=== PATIENT | female | born 1985 | race Caucasian/White ===

== ENCOUNTER → 2017-11-16 14:00 | Outpatient (CLI) | payer OTHER, SELFPAY ==
--- NOTE | 2017-11-16 14:05 | US_ITS ---
US transvaginal Ordering Physician: Ayah Page Patient Age: 32 years: Female HISTORY: ITS.REASON: PELVIC PAIN, SUPRAPUBIC ABD PAIN Pelvic and coronal pelvic pain TECHNIQUE: Transvaginal pelvic ultrasound. COMPARISON :None FINDINGS uterus normal size. 7.2 cm length as 4 cm x 5 cm Uterus appears within normal limits. Endometrial stripe measures 6.7 mm AP endometrium appears smooth and regular. No fibroids identified. Right ovary 2.5 x 2.3 x 2.4 cm Several cystic areas. The largest cyst measuring 1 cm. The others are notably smaller. Left ovary 2.0 x1.8 x 2.3 cm. Small cystic area. Less than 1 cm No fluid in cul-de-sac IMPRESSION: . Uterus appears normal size. & Appearance . Ovaries normal in size.With Follicles cyst bilaterally Largest cyst at left ovary measuring 1 cm
== END ==
PROVIDERS: Family Provider Internal Medicine Adolescent Medicine; PCP Nurse Practitioner Family; Visit Provider Nurse Practitioner Family
DX: R10.2 Pelvic and perineal pain (principal)
CPT/HCPCS: 76830

== ENCOUNTER 2019-11-06 11:59 | Day surgery (SDC) | payer MEDICAID, SELFPAY ==
[2019-11-06] VITALS (16 sets, daily range): BP systolic 117–148; BP diastolic 61–94; PULSE 68–111; RESP 12–20; TEMP 36.4–43; O2SAT 89–99; BMI 25.7
--- NOTE | 2019-11-06 12:18 | CT_ITS ---
PROCEDURE: CT ABDOMEN PELVIS W CON CLINICAL INDICATION: right aide abd pain COMPARISON: No exams were available for comparison TECHNIQUE: IV Contrast: 75ML OPTIRAY 350 Oral Contrast None Axial images obtained with sagittal and coronal reformats. All CT scans at the facility use one or more dose reduction, viz: automated exposure control, ma/kV adjustment per patient size (including targeted exams where dose is matched to indication, i.e. head), or iterative reconstruction technique. FINDINGS: LOWER THORAX: No acute finding ABDOMEN & PELVIS: The liver, spleen, adrenal glands, pancreas, and kidneys have an unremarkable appearance. No intestinal obstruction or free air. The appendix is slightly plump at 7 mm. There is a small amount of fluid within the appendiceal lumen distally there is no significant stranding of the periappendiceal fat however the margin of the appendix is somewhat ill-defined. Early/mild appendicitis is a consideration. No evidence of abscess or perforation. Only minimal amount of fluid is noted in the pelvis. No acute bony findings. IMPRESSION: There is mild prominence of the appendix with a small amount fluid in the distal aspect of the appendiceal lumen. Mild/early appendicitis is a consideration. Please correlate with clinical parameters. If clinical findings are indeterminate then, would recommend a follow-up exam with IV and oral contrast within 12 hours. Dictated by: Myles Ramos MD 11/06/2019 13:47 Electronically signed by Myles Ramos MD in [place] 11/06/2019 13:47
--- NOTE | 2019-11-06 12:23 | PC.NURSE ---
notified rad of CT
[2019-11-06 12:25] LABS: Microscopic, Urine URINE MICROSCOPIC (MICROSCOPIC)
[2019-11-06 12:26] LABS: Appearance,Urine SL CLOUDY (Clear); Bilirubin,Urine Negative (Negative); Blood, Urine Negative (Negative); Color,Urine YELLOW (Yellow); Glucose,Urine (UA) Negative (Negative); Ketones,Urine Negative (Negative); Leukocyte Esterase,Urine Negative (Negative); Nitrate,Urine Negative (Negative); PH,Urine 6.5 (5.0-8.5); Protein,Urine Negative (Negative); Specific Gravity, Urine 1.015 (1.005-1.030); Urobilinogen,Urine 0.2 EU/dl (0.2)
[2019-11-06 12:29] LABS: Urine Pregnancy, HCG Qual. Negative (Negative)
[2019-11-06 12:40] LABS: Basophils % 0.3 % (0.1-2.0); Eosinophils # 0.2 K/mm3 (0.0-0.4); Eosinophils % 1.9 % (0.1-12.0); Hematocrit 44.7 % (37.0-47.0); Hemoglobin 15.5 g/dL (12.2-16.2); Lymphocytes # 1.8 K/mm3 (0.7-4.5); Mean Corpuscular HGB Conc 34.6 g/dL (31.8-35.4); Mean Corpuscular Hemoglobin 32.4 pg (27.0-31.2); Mean Corpuscular Volume 93.6 fl (81-99); Mean Platelet Volume 7.4 fl (7.4-10.4); Monocytes # 0.5 K/mm3 (0.1-1.0); Monocytes % 3.7 % (1.7-9.3); Neutrophils # 9.5 K/mm3 (1.8-7.8); Platelet Count 365 K/mm3 (142-424); Red Blood Count 4.77 M/mm3 (4.20-5.40); Red Cell Distribution Width 12.8 % (11.5-17.5)
--- NOTE | 2019-11-06 12:52 | PC.NURSE ---
Pt left for rad
[2019-11-06 12:59] LABS: Chloride 100 mmol/L (98-107); Sodium 137 mmol/L (136-145)
[2019-11-06 13:00] LABS: Potassium 4.2 mmoL/L (3.5-5.1)
[2019-11-06 13:02] LABS: Alanine Aminotransferase 14 U/L (12-78); Albumin Level 4.7 g/dl (3.5-5.0); Albumin/Globulin Ratio 1.3 (1.1-1.8); Alkaline Phosphatase 70 U/L (38-126); Amylase 67 U/L (30-110); Anion Gap 13.2 mEq/L (5-15); Aspartate Amino Transferase 29 U/L (14-36); Bilirubin,Total 0.7 mg/dl (0.2-1.3); Blood Urea Nitrogen 8 mg/dl (7-17); Calcium 9.5 mg/dl (8.4-10.2); Carbon Dioxide 28 mmol/L (22.0-30.0); Creatinine Clearance Estimated 108 mL/min (50-200); Estimated Glomerular Filt Rate 83 ml/min (>60); GFR (African American) 101 ML/MIN (>60); Globulin 3.5 g/dL (1.3-3.2); Glucose 108 mg/dl (74-100); Lipase 35 U/L (23-300); Total Protein,Serum 8.2 g/dl (6.3-8.2)
--- NOTE | 2019-11-06 13:25 | PC.NURSE ---
pt returned from ct
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
--- NOTE | 2019-11-06 14:18 | PC.NURSE ---
Dr Jiménez returned call
--- NOTE | 2019-11-06 14:29 | PC.NURSE ---
pre-op just called said Dr Jiménez was gonna do surgery on her. they are coming down to get her
--- NOTE | 2019-11-06 14:34 | HMH.EDABDPAI ---
ED Disposition Clinical Impression: Acute appendicitis Disposition: Admitted as Observation Condition on Discharge: Good Instructions: DI for Acute Abdomen Referrals: Terri Peñaloza [Primary Care Provider] - - Critical Care Critical Care Time: No Attestation: On 11/06/19, the high probability of a clinically significant, sudden or life threatening deterioration of the following system(s) required my full and direct attention, intervention and personal management. The time I documented below is in addition to time spent performing reported procedures but includes the following listed in this critical care notation. Medical Decision Making - Medical Records Medical records reviewed: Yes: I reviewed the patient's medical records. - Rodolfo Inquiry Pt receiving controlled substance: No Vital Signs: 11/06/19 12:00 11/06/19 13:24 Temperature 98.0 F Temperature Source Oral Pulse Rate [Left] 84 84 Respiratory Rate 16 16 Blood Pressure [Right Arm] 140/89 138/94 H Blood Pressure Mean [Right Arm] 106 108 Blood Pressure Source [Right Arm] Automatic Cuff Automatic Cuff Blood Pressure Position [Right Arm] Sitting Sitting 02 Sat by Pulse Oximetry 98 99 Oxygen Delivery Method Room Air Room Air - Lab Data Lab results reviewed: Yes: I reviewed the patient's lab results. Lab Results 11/06/19 12:08: Urine Color Yellow, Urine Appearance Sl cloudy, Urine pH 6.5, Ur Specific [place] 1.015, Urine Protein Negative, Urine Glucose (UA) Negative, Urine Ketones Negative, Urine Blood Negative, Urine Nitrate Negative, Urine Bilirubin Negative, Urine Urobilinogen 0.2, Ur Leukocyte Esterase Negative, Urine WBC 3-5, Ur Squamous Epith Cells 3-5 11/06/19 12:08: Urine HCG, Qual Negative 11/06/19 12:24: WBC 12.0 H, RBC 4.77, Hgb 15.5, Hct 44.7, MCV 93.6, MCH 32.4 H, MCHC 34.6, RDW 12.8, Plt Count 365, MPV 7.4, Neut % (Auto) 79.0, Lymph % (Auto) 15.0, Coos % (Auto) 3.7, Eos % (Auto) 1.9, Baso % (Auto) 0.3, Neut # (Auto) 9.5 H, Lymph # (Auto) 1.8, Coos # (Auto) 0.5, Eos # (Auto) 0.2, Baso # (Auto) 0.0 11/06/19 12:24: Sodium 137, Potassium 4.2, Chloride 100, Carbon Dioxide 28, Anion Gap 13.2, BUN 8, Creatinine 0.80, Estimated Creat Clear 108, Estimated GFR 83, Est GFR ( Amer) 101, Glucose 108 H, Calcium 9.5, Total Bilirubin 0.7, AST 29, ALT 14, Alkaline Phosphatase 70, Total Protein 8.2, Albumin 4.7, Globulin 3.5 H, Albumin/Globulin Ratio 1.3, Amylase 67, Lipase 35 Result diagrams: 11/06/19 12:24 11/06/19 12:24 Orders (Tests/Meds): ED MEDICATIONS Discontinued Medications Generic Name Dose Route Start Last Admin Trade Name Miesha PRN Reason Stop Dose Admin Ioversol 75 ml 11/06/19 13:26 11/06/19 13:27 Rad-Optiray 350 100ml Vial IV 11/06/19 13:27 75 ml ONCE ONE Administration Protocol Sodium Chloride 10 ml 11/06/19 13:26 11/06/19 13:27 Rad-Saline Flush 10ml Syringe IV 11/06/19 13:27 10 ml ONCE ONE Administration - CT Data CT Scan: Abdomen, Pelvis Time Received: 14:[address] Reviewed: Yes: I have viewed the radiologist's interpretation Preliminary Findings: Abnormal (The onset appendicitis with ependymal thickening) Medical Decision Narrative: To Dr. rg and read did agree to take this patient to the OR. Abdominal Pain HPI - General Chief Complaint: Abdominal Pain Stated Complaint: R side pain Time Seen by Provider: 11/06/19 14:34 Mode of Arrival: Ambulatory Source of Information: Patient Limitations: No Limitations Description of Symptoms (Recalled from ER Triage Doc. by RN): Pt advises she started having right lower abd pain yesterday and it has never completely went away. PT advises she has been nauseated with it, but denies any N/D and problems with urination. - History of Present Illness HPI narrative: 34-year-old female presents to the emergency department with right lower quadrant abdominal pain. She states the pain started yesterday, vague pain but has progressively inez
--- NOTE | 2019-11-06 15:06 | P.PN_ITS ---
[facility] Anesthesia Checklist - Patient Identification Patient Identification: Arm Band - Structural Data Admitted From: Emergency Dept Planned Operative Procedure/s: laparoscopic appendectomy Consent for Planned Operative Procedure(s) Verified: Yes Verified Documents: Surgical Consent, History and Physical - NPO Status Verified Time NPO: 00:00 - Additional verifications Anesthesia Reactions: No - Airway Assessment C-Spine Mobility Assessed: Yes (mp2) TMJ Mobility Assessed: Yes Dentition: Good Dentition - Neurological Assessment Level of Consciousness: Awake, Alert - Anesthesia Plan Anesthesia Risk discussed: Yes Anesthesia Plan: Verified ASA Class: II (e) Anesthesia Type: General [facility] History I have reviewed the patient's past medical history: Yes *Have you ever received a pneumonia vaccine?: No *Have you received a flu vaccine this season?: No Anesthesia experience/problems:: nac Other Surgeries: Yes: Dilation and Curettage, Tubal Ligation - *Social History Substance Use Type: denies use *Occupational Status:: employed *Travel in the last 8 weeks: None Family Hx:: No significant family history
[2019-11-06 15:24] LABS: Coronavirus 19 IgG Antibody Negative (Negative); Coronavirus 19 IgM Antibody Negative (Negative)
--- NOTE | 2019-11-06 16:49 | HMH.OPNOTE ---
Date of procedure: 11/06/19 Pre-op Diagnosis:: Appendicitis Post-op Diagnosis:: Same Procedure performed:: Laparoscopic appendectomy Surgeon:: Martin Jiménez MD BLASTING MACHINE OPERATOR:: Luis Armando Mancera Anesthesia: GETCindi Estimated blood loss (mL): 10 Operative findings:: Enlarged/inflamed appendix with no sign of perforation Operative note:: After informed consent was obtained the patient was taken to the operating room and placed in the supine position. General anesthesia was induced and her abdomen was prepped and draped in a sterile fashion. After infiltration of local anesthetic an infraumbilical incision was made. A Veress needle was placed in position. The abdomen was insufflated. A 12 mm optical trocar was placed in position. Under direct visualization a 5 mm trocar was placed in the suprapubic position and an additional 5 mm trocar was placed in the left lower quadrant. The right lower quadrant was carefully evaluated. The appendix was inflamed and enlarged; however, no sign of perforation or suppurative changes were noted. The appendix was carefully elevated. The mesoappendix was taken with harmonic adán. An Endopath ETS 45 stapling device was utilized to transect the appendix at its base. The appendix was placed in a retrieval bag and removed through the infraumbilical trocar site. The right lower quadrant was thoroughly irrigated. No active bleeding or sign of injury was noted. The staple margin appeared to be intact with no sign of complication. Pneumoperitoneum was released as the trocars were removed. Fascia at the infraumbilical trocar site was reapproximated with 0 Ethibond. All wounds were irrigated and skin was closed with 4-0 Monocryl. Steri-Strips were placed in position. The patient's anesthetic agents were reversed and she was extubated prior to transfer to recovery. Condition: stable Disposition: PACU Specimens:: Appendix Complications:: No immediate
--- NOTE | 2019-11-06 16:55 | P.PN_ITS ---
[facility] Anesthesia Record Part I Intake, IV Amount: 900 Estimated blood loss (mL): 5 Urine output (mL): 100 Blood Products used (#): none Blood Pressure: 148/77 SaO2: 96 Pulse Rate: 73 Respiratory Rate: 20 Temperature: 97.6 F Patient is:: Drowsy, Stable Stable to PACU at:: 16:52
[2019-11-06 20:54] LABS: Microscopic,Cath URINE MICROSCOPIC (MICROSCOPIC)
[2019-11-06 21:18] LABS: Appearance,Urine/Cath CLEAR (Clear); Bilirubin,Cath Negative (Negative); Blood, Urine/Cath Negative (Negative); Color,Urine/Cath YELLOW (Yellow); Glucose,Urine/Cath (UA) Negative (Negative); Ketones,Urine/Cath Negative (Negative); Leukocyte Esterase,Cath Negative (Negative); Nitrate,Cath Negative (Negative); PH,Urine/Cath 6.5 (5.0-8.5); Protein,Urine/Cath Negative (Negative); Specific Gravity, Urine/Cath <= 1.005 (1.005-1.030); Urobilinogen,Cath 0.2 EU/dl (0.2)
[2019-11-06 21:35] LABS: Squamous Epithelial Ur./Cath Occasional #/hpf (0-5)
--- NOTE | 2019-11-06 21:54 | P.PN_ITS ---
[facility] Anesthesia Record Part II Discharge Time: 17:22 Destination: Surgical Day Care (OP Surgery) PACU nurse assessment reviewed?: Yes Patient Condition:: Good Anesthesia Complications:: None Swallowing reflex intact?: Yes Cyanosis?: No Blood Pressure: 137/77 Pulse Rate: 110 Temperature: 97.6 F Mental Status: Alert & Oriented Pain level:: 0 Nausea and/or vomitting:: None Intake, IV Amount: 30
== END 2019-11-06 18:14 | disposition home or self-care (01) ==
LOC: ER 14:22 → OR 14:38
PROVIDERS: Emergency Provider Family Medicine; PCP Nurse Practitioner Family; Visit Provider Surgery
PROC: 0DTJ4ZZ Resection of Appendix, Percutaneous Endoscopic Approach (ICD-10-PCS; CPT 44970; principal; 2019-11-06 14:45)
DX: K35.890 Other acute appendicitis without perforation or gangrene (principal)
CPT/HCPCS: 44970; 74177; 80053; 81001; 81025; 82150; 83690; 85025; 86328; 96374; 99284; J2405; Q9967

== ENCOUNTER 2020-07-27 16:37 | Emergency (ER) | payer OTHER, SELFPAY ==
[2020-07-27 17:25] VITALS: BP 108/73; PULSE 74; RESP 19; TEMP 36.8; O2SAT 97; BMI 26.6
--- NOTE | 2020-07-27 17:27 | HMH.EDUTC ---
[facility] [place] Clinical Impression: Acute bronchitis Qualifiers: Bronchitis organism: unspecified organism Qualified Code(s): J20.9 - Acute bronchitis, unspecified Sinusitis Qualifiers: Sinusitis location: unspecified location Chronicity: acute Recurrence: non-recurrent Qualified Code(s): J01.90 - Acute sinusitis, unspecified Disposition: Home, Self-Care Condition on Discharge: Good Instructions: DI for Sinusitis, DI for Acute Bronchitis Additional Instructions: Drink plenty of fluids. Take tylenol or ibuprofen for pain or fever. Take the medications as directed. Follow up with your regular doctor. GO TO THE ER FOR ANY WORSENING SYMPTOMS Prescriptions: predniSONE [Prednisone 20mg Tab] 20 mg PO BID 4 Days #8 tab Transmission Status: Received by [facility] Benzonatate [Tessalon Perle 100mg Cap] 100 mg PO TIDP PRN #30 cap PRN Reason: Cough Transmission Status: Received by [facility] Azithromycin [Z-Devendra 250mg Tab*] 250 mg PO UD DOSE PK #6 tab Transmission Status: Received by [facility] Referrals: Terri Peñaloza [Primary Care Provider] - Time of Disposition: 17:51 Medical Decision Making - Medical Records Medical records reviewed: No: I reviewed the patient's medical records. - Rodolfo Inquiry Pt receiving controlled substance: No Vital Signs: 07/27/20 17:25 07/27/20 18:00 Temperature 98.2 F 98 F Temperature Source Oral Pulse Rate 74 Pulse Rate [Right] 74 Respiratory Rate 19 14 Blood Pressure 111/78 Blood Pressure [Right Arm] 108/73 L Blood Pressure Mean [Right Arm] 84 02 Sat by Pulse Oximetry 97 [facility] [place] HPI - General Stated complaint: cough,congestion Time Seen by Provider: 07/27/20 17:27 - History of Present Illness Provider Complaint: She states that for the past week she has had sinus congestion, cough, and bilateral ear pain. She had covid-19 2 months ago. She states that this doesn't feel like covid this time - Related Data Previous Rx's Medication Instructions Recorded Azithromycin [Z-Devendra 250mg Tab*] 250 mg PO UD DOSE PK #6 tab 07/27/20 Benzonatate [Tessalon Perle 100mg 100 mg PO TIDP PRN #30 cap 07/27/20 Cap] predniSONE [Prednisone 20mg 20 mg PO BID 4 Days #8 tab 07/27/20 Tab] Allergies Allergy/AdvReac Type Severity Reaction Status Date / Time No Known Allergies Allergy Verified 07/27/20 17:29 [facility] History - Hepatitis A Screen Attestation statement:: This patient has been screened for Hepatitis A risk factors. I have reviewed the patient's past medical history: Yes Other Surgeries: Yes: Appendectomy, Dilation and Curettage, Tubal Ligation, Other Amputation: No Fractures: No - Social History Smoking Status: Current every day smoker # Packs/Day (cigarettes): 2 Alcohol Intake: current Alcohol Intake Frequency:: 0-2 drinks per day Substance Use Type: denies use Occupational Status: employed Comment: [employer], returned November 01 Family Hx:: No significant family history, Heart Attack, Diabetes, Hypertension, Hyperlipidemia, Stroke, Alcoholism ROS Obtained: Yes All systems reviewed & no additional complaints - Constitutional Constitutional: Denies chills, Denies fever(s), Reports poor appetite, Reports malaise - Eyes Eyes: Denies eye discharge - ENT Ears, Nose, Mouth, and Throat: Reports as per HPI - Cardiovascular Cardiovascular: Denies chest pain - Respiratory Respiratory: Reports chest congestion, Reports cough Physical Exam - General General appearance: alert, in no apparent distress - Head Head exam: atraumatic, normocephalic, normal inspection - Eye Eye exam: Present: normal appearance, PERRL, EOMI - ENT ENT exam: Present: normal exam, normal oropharynx, mucous membranes moist, TM's normal bilaterally, normal external ear exam - Neck Neck exam: Present: normal inspection, full ROM, trachea midline. Absent: meningismus, lymphadenopathy - Chest Ches
[2020-07-27 18:00] VITALS: BP 111/78; PULSE 74; RESP 14; TEMP 36.6
== END 2020-07-27 17:59 | disposition home or self-care (01) ==
PROVIDERS: Emergency Provider Nurse Practitioner Family; PCP Nurse Practitioner Family
DX: J20.9 Acute bronchitis, unspecified (principal); J01.90 Acute sinusitis, unspecified; Z86.16 Personal history of COVID-19; F17.210 Nicotine dependence, cigarettes, uncomplicated
CPT/HCPCS: 99202; G0463

== ENCOUNTER 2020-12-23 11:45 | Emergency (ER) | payer SELFPAY ==
[2020-12-23 12:19] VITALS: BP 0/0; PULSE 0; RESP 0; TEMP -17.7; TEMP 0
== END 2020-12-23 12:20 | disposition left against medical advice (07) ==
PROVIDERS: Emergency Provider Nurse Practitioner Family; PCP Nurse Practitioner Family
DX: Z53.21 Procedure and treatment not carried out due to patient leaving prior to being seen by health care provider (principal)

== ENCOUNTER 2021-06-01 12:41 | Emergency (ER) | payer OTHER, SELFPAY ==
[2021-06-01 12:42] VITALS: BP 131/102; PULSE 95; RESP 18; TEMP 36.6; O2SAT 99; BMI 22.3
--- NOTE | 2021-06-01 12:52 | XR_ITS ---
FINAL REPORT CLINICAL HISTORY: fall on ice FINDINGS: RIGHT FOREARM Two views demonstrate a nondisplaced fracture of the radial styloid. No acute soft tissue abnormality is identified. IMPRESSION: Fracture as above. Reviewed, Interpreted and Dictated by Javy Schmitt III, MD Transcribed by Anahy Arriaza Authenticated by Javy Schmitt III, MD on 06/01/2021 02:24:55 PM [facility]
--- NOTE | 2021-06-01 12:52 | XR_ITS ---
FINAL REPORT CLINICAL HISTORY: fall on ice FINDINGS: RIGHT WRIST Three views demonstrate a nondisplaced fracture of the radial styloid. No other fracture or dislocation. IMPRESSION: Fracture as above. Reviewed, Interpreted and Dictated by Javy Schmitt III, MD Transcribed by Anahy Arriaza Authenticated by Javy Schmitt III, MD on 06/01/2021 02:24:49 PM [facility]
--- NOTE | 2021-06-01 12:52 | XR_ITS ---
FINAL REPORT CLINICAL HISTORY: fall on ice FINDINGS: RIGHT HAND Three views demonstrate a nondisplaced fracture of the radial styloid. No other fracture or dislocation. IMPRESSION: Fracture as above. Reviewed, Interpreted and Dictated by Javy Schmitt III, MD Transcribed by Anahy Arriaza Authenticated by Javy Schmitt III, MD on 06/01/2021 02:24:54 PM [facility]
--- NOTE | 2021-06-01 13:49 | HMH.EDGENADL ---
ED Disposition Clinical Impression: Wrist fracture Qualifiers: Encounter type: initial encounter Fracture type: closed Laterality: right Qualified Code(s): S62.101A - Fracture of unspecified carpal bone, right wrist, initial encounter for closed fracture Disposition: Home, Self-Care Condition on Discharge: Good Instructions: DI for Distal Radius Fracture, How to Take Care of Your Splint Additional Instructions: Norwood as needed for pain. Additional instructions for FRACTURED (BROKEN) BONE: See Dr. Tsang as soon as possible for further evaluation. Treat your splint like you would a cast: Do not get it wet (cover with a plastic bag while bathing or showering). If the splint feels too tight, you may loosen the tanvi wrap covering it, but do not remove the splint. You may ice the fracture by applying an ice pack over the top of the splint, without removing the splint. Return to an emergency department immediately if you have uncontrollable pain, loss of feeling or inability to move your injured extremity. Additional instructions for CONTROLLED SUBSTANCES: You have been prescribed a medication that is a controlled substance. Controlled substances include pain medications known as opiates and sedative nerve medications known as benzodiazepines. Tramadol, fioricet, and gabapentin are also controlled substances. Some common opiates include: Codeine (such as Tylenol #3) Hydrocodone (Vicodin, Lortab, Lorcet, Norwood) Oxycodone (Percocet, Percodan, Oxycodone, Oxy IR) Some common benzodiazepines include: Diazepam (Valium) Lorazepam (Ativan) Alprazolam (Xanax) Clonazepam (Klonopin) Oxazepam (Serax) All of these controlled substances are highly addictive and frequently abused. Misuse can and frequently does lead to addiction as well as overdose and . Medication should be stored in a locked cabinet or other secure storage unit. Do not store the medication in a motor vehicle. Short term supplies, 3 days or less, are prescribed because of the highly addictive nature of the medication. Any of the controlled substance medication NOT taken should be disposed of properly and NOT SAVED. The recommended method of disposing of unused medications is: Place the medicines in a sealable plastic bag. If the medicine is a solid, crush it or add water to dissolve it. Add something undesirable (cat litter, coffee grounds, etc.) Dispose of sealed bag in household trash Do not flush or pour unused medicines down a sink or drain. Controlled substances should not be shared, given away or sold. Because of the addictive nature and frequent abuse, these medications are sometimes stolen. These medications should be kept in a safe place where they cannot be stolen. Do not keep them in your car or purse. Lost or stolen prescriptions for controlled substances WILL NOT BE REFILLED in this emergency department, regardless of whether a police report was filed. Prescriptions: Hydrocod/Acet 5/325 mg [Norwood 5/325mg tablet] 1 tab PO Q6HP PRN #10 tab PRN Reason: Pain Transmission Status: Received by [facility] Referrals: Terri Peñaloza [Primary Care Provider] - - Critical Care Critical Care Time: No Attestation: On 06/01/21, the high probability of a clinically significant, sudden or life threatening deterioration of the following system(s) required my full and direct attention, intervention and personal management. The time I documented below is in addition to time spent performing reported procedures but includes the following listed in this critical care notation. Medical Decision Making - Rodolfo Inquiry Pt receiving controlled substance: Yes Rodolfo was queried for this patient: Yes Risks and benefits of using a controlled substance: were discussed with pt by me Vital Signs: 06/01/21 12:42 Temperature 97.8 F Temperature Source Oral Pulse Rate [Left Radial] 95 H Respiratory Rate 18 Blood Pressure [Right Ar
[2021-06-01 14:26] VITALS: BP 125/74; PULSE 78; RESP 16; TEMP 36.6; O2SAT 98
== END 2021-06-01 14:27 | disposition home or self-care (01) ==
PROVIDERS: Emergency Provider Emergency Medicine; PCP Nurse Practitioner Family
DX: S52.514A Nondisplaced fracture of right radial styloid process, initial encounter for closed fracture (principal); W01.0XXA Fall on same level from slipping, tripping and stumbling without subsequent striking against object, initial encounter; Y92.009 Unspecified place in unspecified non-institutional (private) residence as the place of occurrence of the external cause; F17.210 Nicotine dependence, cigarettes, uncomplicated
CPT/HCPCS: 29125; 73090; 73110; 73130; 99283

== ENCOUNTER → 2021-06-09 11:33 | Outpatient (CLI) | payer OTHER, SELFPAY ==
--- NOTE | 2021-06-09 11:38 | XR_ITS ---
FINAL REPORT CLINICAL HISTORY: right wrist injury COMPARISON: June 01, 2021 FINDINGS: 3 views of the right wrist were obtained. Again seen is a nondisplaced fracture of the radial styloid. The joint spaces are intact. There is no soft tissue abnormality. IMPRESSION: Nondisplaced fracture of the radial styloid. Reviewed, Interpreted and Dictated by Javy Schmitt III, MD Transcribed by Keven Knox Authenticated by Javy Schmitt III, MD on 06/09/2021 01:20:58 PM [facility]
== END ==
PROVIDERS: PCP Nurse Practitioner Family; Visit Provider Orthopaedic Surgery
DX: S69.91XA Unspecified injury of right wrist, hand and finger(s), initial encounter (principal)
CPT/HCPCS: 73110

== ENCOUNTER → 2021-06-16 08:54 | Outpatient (CLI) | payer OTHER, SELFPAY ==
--- NOTE | 2021-06-16 08:58 | XR_ITS ---
FINAL REPORT CLINICAL HISTORY: right wrist injury COMPARISON: June 09, 2021 FINDINGS: 3 views of the right wrist were obtained. There is overlying cast material. The fracture line is less evident consistent with interval healing. The joint spaces are intact. There is no soft tissue abnormality. IMPRESSION: Interval cast placement with interval healing as above. Reviewed, Interpreted and Dictated by James Chun MD Transcribed by Keven Knox Authenticated by James Chun MD on 06/16/2021 10:51:[address] [facility]
== END ==
PROVIDERS: PCP Nurse Practitioner Family; Visit Provider Orthopaedic Surgery
DX: S62.101A Fracture of unspecified carpal bone, right wrist, initial encounter for closed fracture (principal)
CPT/HCPCS: 73110

== ENCOUNTER → 2021-07-01 09:15 | Outpatient (CLI) | payer OTHER, SELFPAY ==
--- NOTE | 2021-07-01 09:20 | XR_ITS ---
FINAL REPORT CLINICAL HISTORY: wrist fx follow up COMPARISON: June 16, 2021 FINDINGS: RIGHT WRIST: Three views of the right wrist were obtained. There is a nondisplaced fracture of the radial styloid process. No significant callus formation is identified. The cast has been removed. The visualized joint spaces are normally aligned. The soft tissues are unremarkable. There is no new bony abnormality. IMPRESSION: Stable radial styloid fracture. Reviewed, Interpreted and Dictated by Javy Schmitt III, MD Transcribed by Noemi Loya Authenticated by Javy Schmitt III, MD on 07/01/2021 11:38:32 AM [facility]
== END ==
PROVIDERS: PCP Nurse Practitioner Family; Visit Provider Orthopaedic Surgery
DX: S62.101A Fracture of unspecified carpal bone, right wrist, initial encounter for closed fracture (principal)
CPT/HCPCS: 73110

== ENCOUNTER 2021-07-01 10:29 | Outpatient (RCR) | payer OTHER, SELFPAY | END 2021-07-01 11:30 | disposition home or self-care (01) | LOC: OT 10:29 | PROVIDERS: Visit Provider Orthopaedic Surgery | DX: S52.571D Other intraarticular fracture of lower end of right radius, subsequent encounter for closed fracture with routine healing (principal) | CPT/HCPCS: 97763 ==

== ENCOUNTER 2021-07-22 08:30 | Outpatient (RCR) | payer OTHER, SELFPAY ==
--- NOTE | 2021-07-06 09:10 | HMH.OTOPEV ---
OT Inpatient Evaluation Rehab OT Outpatient Eval Start: 07/06/21 08:45 Freq: Status: Active Protocol: Document 07/06/21 08:45 PAULINAJEEVAN (Rec: 07/06/21 09:10 IFEOMA [id number]) Electronically Signed By Delmi Madrid OT 07/06/21 08:45 Outpatient Therapy Subjective History Subjective History 35 year old female referred to skilled OP OT services for R styloid wrist fx. On 06/01/20, Patient slipped and fell on ice resulting in fx with have splint on ~1 wk and cast ~4 weeks. Patient recently had cast removed on 07/01/20 from ortho with f/u in 6 weeks on August 12. Patient exhibit limitation on R UE AROM of wrist flex/ext/UD along with pain and generalized weakness. Chief Complaint Pain,Weakness,Decreased General Teller Strength Symptom Type Ache,Sharp Symptoms Relieved By Brace/Support Symptoms Aggravated By Physical Activity Prior Functional Limitations None Current Functional Limitations Lifting,Recreation Activity Symptom Description Constant and Continuous Level of pain today (0-10) 1 Pain scale - at its best (0-10) 1 Pain scale - at its worst (0-10) 3 Wrist/Hand Eval Wrist Range of Motion Right Wrist Extension Active Range of Motion ( 48 degrees) Wrist Flexion Active Range of Motion ( 40 degrees) Wrist Radial Deviation Active Range of 20 Motion (degrees) Wrist Ulnar Deviation Active Range of 25 Motion (degrees) Forearm Supination Active Range of 89 Motion (degrees) Forearm Pronation Active Range of Motion 90 (degrees) General Teller/Pinch Strength Right General Teller Strength Measurement (lbs) 50 Left General Teller Strength Measurement (lbs) 65 OT Outpatient Assessment Impairments Problems/Impairments Impaired Range of Motion, Impaired Strength,Subjective C /O Pain Prognosis Rehab Potential Good Clinical Impression Consistent with Diagnosis Yes Short Term Goals Number of Weeks 2 Increase Range of Motion Yes: AROM of R wrist flex: 50; ext: 55; UD: 27 Increase Strength Yes: Improve R wireless field technician strength: 55# Decrease Subjective C/O Pain Yes: 2/10 at worst Patient to be Ind w/ HEP Yes: AAROM Patient to be Ind w/ Advanced HEP Yes: Strengthen
== END 2021-08-17 08:18 | disposition home or self-care (01) ==
LOC: OT 08:30
PROVIDERS: PCP Nurse Practitioner Family; Visit Provider Orthopaedic Surgery
DX: S52.514D Nondisplaced fracture of right radial styloid process, subsequent encounter for closed fracture with routine healing (principal); S52.571D Other intraarticular fracture of lower end of right radius, subsequent encounter for closed fracture with routine healing
CPT/HCPCS: 97010; 97014; 97035; 97110; 97140; 97165; 97530; G0283

== ENCOUNTER 2022-01-11 12:30 | Emergency (ER) | payer OTHER, SELFPAY ==
[2022-01-11 12:31] VITALS: BP 142/90; PULSE 90; RESP 18; TEMP 36.7; O2SAT 98; BMI 24.0
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
[2022-01-11 13:35] VITALS: BP 142/90; PULSE 90; RESP 18; TEMP 36.7; O2SAT 98
== END 2022-01-11 13:35 | disposition home or self-care (01) ==
PROVIDERS: Emergency Provider Nurse Practitioner Family; PCP Nurse Practitioner Family
DX: S02.2XXA Fracture of nasal bones, initial encounter for closed fracture (principal); Y04.2XXA Assault by strike against or bumped into by another person, initial encounter
CPT/HCPCS: 70150; 99212; G0463

== ENCOUNTER → 2022-12-06 13:05 | Outpatient (CLI) | payer OTHER, SELFPAY ==
--- NOTE | 2022-12-06 13:05 | MM_ITS ---
PROCEDURE INFORMATION: Exam: Bilateral Screening 3D Mammography Exam date and time: 12/06/2022 1:04 PM Age: 37 years old Clinical indication: Baseline. A paternal aunt had breast cancer. TECHNIQUE: Imaging protocol: Bilateral Screening tomosynthesis and 2D mammography including computer-aided detection (CAD) when performed. COMPARISON: No relevant prior studies available. FINDINGS: MAMMOGRAPHY: Breast composition: The breasts are heterogeneously dense, which may obscure small masses. Mass: None. Architectural distortion: None. Calcifications: No suspicious calcifications. Asymmetric density: None. Skin thickening: None. Axillary adenopathy: None. IMPRESSION: No mammographic evidence of malignancy. Annual screening is recommended unless otherwise clinically indicated. ASSESSMENT: BI-RADS Category 1: Negative
== END ==
PROVIDERS: PCP Nurse Practitioner Family; Visit Provider Nurse Practitioner Obstetrics & Gynecology
DX: Z12.31 Encounter for screening mammogram for malignant neoplasm of breast (principal)
CPT/HCPCS: 77063; 77067

== ENCOUNTER → 2023-03-13 08:29 | Outpatient (CLI) | payer OTHER, SELFPAY ==
--- NOTE | 2023-03-13 08:29 | US_ITS ---
PROCEDURE: US TRANSVAGINAL CLINICAL INDICATION: pelvic pain COMPARISON: No exams were available for comparison FINDINGS: Transvaginal sonographic images of the pelvis were obtained. UTERUS: 7.8 cm x 3.8 cmx 4.3 cm with a combined endometrial thickness of 6mm. A small nabothian cyst is seen in the cervix. It measures 5 mm. LEFT OVARY: 2.4 cmx2.1 cmx1.6cm with a volume of 4ml. There is a follicle measuring 1.4 cm x 1.3 cm x 0.8 cm. RIGHT OVARY: 3.0 cmx 1.3 cmx2.3 cm. With a volume of 4.8ml. There is a follicle measuring 2.0 cm x 1.0 cm x 0.8 cm. Both ovaries are seen and appear normal. Doppler flow to both ovaries are seen. There is no fluid in the cul-de-sac. IMPRESSION: 1. Anteverted uterus normal in shape and size. 2. Both ovaries have a dominant follicle. 3. No fluid in the cul-de-sac. 4. No obvious cause for her pelvic pain. Dictated by: Ciaran Tucker MD 03/13/2023 10:12 Ciaran Tucker MD in [facility] 03/13/2023 10:12
== END ==
PROVIDERS: PCP Nurse Practitioner Family; Visit Provider Nurse Practitioner Obstetrics & Gynecology
DX: R10.2 Pelvic and perineal pain (principal)
CPT/HCPCS: 76830

== ENCOUNTER 2023-05-26 10:10 | Outpatient (CLI) | payer OTHER, SELFPAY ==
--- NOTE | 2023-05-26 10:13 | XR_ITS ---
FINAL REPORT CLINICAL HISTORY: Chest pain FINDINGS: There is no evidence of effusion or other pleural disease. The mediastinum has a normal appearance. The cardiac silhouette is unremarkable. IMPRESSION: Unremarkable chest exam. Reviewed, Interpreted and Dictated by Juwan Fernando MD Transcribed by Anahy Arriaza Authenticated and [facility]
[2023-05-26 10:34] LABS: Basophils # 0.1 K/mm3 (0-0.2); Basophils % 0.7 % (0.1-2.0); Eosinophils # 0.2 K/mm3 (0.0-0.4); Eosinophils % 2.3 % (0.1-12.0); Hematocrit 40.6 % (37.0-47.0); Hemoglobin 13.6 g/dL (12.2-16.2); Lymphocytes # 2.1 K/mm3 (0.7-4.5); Lymphocytes % 24.3 % (10-50); Mean Corpuscular HGB Conc 33.5 g/dL (31.8-35.4); Mean Corpuscular Hemoglobin 30.6 pg (27.0-31.2); Mean Corpuscular Volume 91.3 fl (81-99); Mean Platelet Volume 7.9 fl (7.4-10.4); Monocytes # 0.4 K/mm3 (0.1-1.0); Monocytes % 4.4 % (1.7-9.3); Neutrophils % 68.2 % (37.0-80.0); Platelet Count 327 K/mm3 (142-424); Red Blood Count 4.44 M/mm3 (4.20-5.40); Red Cell Distribution Width 12.8 % (11.5-17.5); White Blood Count 8.8 K/mm3 (4.8-10.8)
[2023-05-26 10:58] LABS: Chloride 107 mmol/L (98-107); Potassium 4.2 mmoL/L (3.5-5.1); Sodium 138 mmol/L (136-145)
[2023-05-26 11:00] LABS: Alanine Aminotransferase 26 U/L (12-78); Aspartate Amino Transferase 27 U/L (14-36); Blood Urea Nitrogen 9 mg/dl (7-17); Estimated Glomerular Filt Rate 82 ml/min (>60); GFR (African American) 99 ML/MIN (>60)
[2023-05-26 11:01] LABS: Albumin Level 3.8 g/dl (3.5-5.0); Albumin/Globulin Ratio 1.4 (1.1-1.8); Alkaline Phosphatase 58 U/L (38-126); Anion Gap 6.2 mEq/L (5-15); Bilirubin,Total 0.4 mg/dl (0.2-1.3); Calcium 9.1 mg/dl (8.4-10.2); Carbon Dioxide 29 mmol/L (22.0-30.0); Globulin 2.8 g/dL (1.3-3.2); Glucose 51 mg/dl (74-100); Total Protein,Serum 6.6 g/dl (6.3-8.2)
[2023-05-26 11:07] LABS: C-Reactive Protein 1.2 mg/L (0-4)
[2023-05-26 11:16] LABS: Troponin I < 0.01 ng/ml (0.00-0.034)
[2023-05-26 11:46] LABS: Thyroid Stimulating Hormone 0.43 uIU/mL (0.465-4.68)
[2023-05-26 12:29] LABS: Erythrocyte Sedimentation Rate 18 mm/hr (0-20)
[2023-05-26 14:06] LABS: Free T4 (Free Thyroxine) 0.97 ng/dl (0.78-2.19)
[2023-05-26 14:42] LABS: T4 (Thyroxine) 8.3 ug/dl (5.53-11.0); Triiodothryronine (T3) Uptake 31 % (23.5-40.5)
== END 2023-05-26 23:59 ==
PROVIDERS: PCP Nurse Practitioner Family; Visit Provider Nurse Practitioner Family
DX: R07.9 Chest pain, unspecified (principal)
CPT/HCPCS: 36415; 71046; 80053; 84436; 84439; 84443; 84479; 84484; 85025; 85651; 86140

== ENCOUNTER 2023-05-30 14:40 | Outpatient (CLI) | payer OTHER, SELFPAY | END 2023-05-30 23:59 | LOC: RT 14:41 | PROVIDERS: PCP Family Medicine; Visit Provider Physician Assistant | DX: R06.00 Dyspnea, unspecified (principal); R07.9 Chest pain, unspecified; R00.2 Palpitations; F17.200 Nicotine dependence, unspecified, uncomplicated | CPT/HCPCS: 93270 ==

== ENCOUNTER 2023-06-14 11:33 | Outpatient (CLI) | payer OTHER, SELFPAY ==
--- NOTE | 2023-06-14 11:33 | CT_ITS ---
APPROVED REPORT [employer]: CLINICAL INDICATION Chest Pain TECHNIQUE Image Acquisition: A 128 slice MDCT scanner ([employer] Taggstra View) was used for data acquisition. A noncontrast coronary calcium scan was performed. A CT attenuation threshold of 130 Hounsfield units (HU) was used for the detection of calcium in contiguous voxels of 1 sq mm in area to be counted as individual lesions. Bolus tracking in the ascending aorta with a threshold of 180 HU was performed. Immediately afterwards, ECG synchronized cardiac CT was then performed from the cardiac base to apex using retrospective gating with ECG tube current modulation. A total of 85 mL of Isovue 370 mg/mL contrast medium was administered at 5 mL/sec followed by a saline flush using a biphasic injection protocol. A tube voltage of 120 KVp was used. The patient received the following medications prior to the cardiac CT. 0.8 mg of sublingual nitroglycerin The average heart rate at the time of acquisition was 68 bpm and regular. Image Reconstruction Transaxial images were reconstructed at 0.67 mm slide thickness. Data was reviewed interactively on an advanced workstation capable of 2 and 3-dimensional displays in all conventional reconstruction formats, including multiplanar reformations, maximum intensity projections, curved multiplanar reformations, and volume rendered reconstructions. When applicable, selected routine images describing the relevant coronary anatomy and pathology were saved and sent to PACS. Complications None Technical Quality Overall image quality was good. Coronary artery opacification was adequate. Total DLP (Dose-Length Product) is 1299.4 mGy-cm. The reported value represents the total of one or more individual components during the CT acquisition of this date and at this time, and as such, the same value may appear in more than one CT report depending on the interpreting/reporting physicians. COMPARISON None FINDINGS CT Coronary Calcium Scoring LMA (Left Main Artery) = 0 LAD (Left Anterior Descending) = 0 LCX (Left Coronary Circumflex) = 0 RCA (Right Coronary Artery) = 0 Total Calcium Score = 0 using the AJ-130 method. The interpretation of the calcium heart score is based on the following continuum*: 0 = no calcified plaque detected (risk of coronary artery disease is very low ??? less than 5%) 1-10 = calcium detected in extremely minimal levels (risk of coronary diseases is still low ??? less than 10%) 11-100 = mild levels of plaque detected with certainty (mild or minimal narrowing of heart arteries is likely) 101-400 = definite,at least moderate levels of plaque detected (relatively high risk of a heart attack within 3-5 years) >401-999 = extensive levels of plaque detected (high risk of heart attack, high levels of vascular disease are present, high likelihood of at least one significant coronary narrowing) *The calcium heart score quantifies the burden of coronary calcification/plaque in the coronary arteries. The calcium heart score is not able to evaluate the presence or burden of non-calcified (i.e. soft) plaque. There is no identifiable calcification in the aortic valve, mitral annulus or mitral valve, pericardium, or myocardium. Coronary CT Angiography The coronary arterial system is right dominant. Quantitative Stenosis Grading: Left Main (LM): The left main originates normally from the left sinus of Valsalva. The LM bifurcates into the left anterior descending artery and left circumflex artery. The LM is patent with no evidence of atherosclerosis. Left Anterior Descending (LAD) and Diagonal Branches: The LAD gives off 2 diagonal branches. The LAD and its branches are patent with no evidence of atherosclerosis. There is no evidence of LAD-myocardial bridge. Left Circumflex (LCX) and Obtuse Marginals (OM): The LCX gives off 1 Obtuse Marginal (OM) branch. The LCX and its branches are patent with no evidence of atherosclerosis. Right Coronary Artery (RCA): The RCA originates normally from the right sinus of Valsalva. The RCA gives off a posterior descending artery (PDA) and posterolateral (PL) branches. The RCA and its branches are patent with no evidence of atherosclerosis. Non-Coronary Cardiac Findings: Analysis of the left ventricular (LV) structure and function was performed after 3-D reconstruction of the LV from axial images, with user-corrected automatic contouring for assessment of LV volumes and user-defined reconstruction from oblique planes for measurement of 3-D cardiac structure and function. -The left ventricle systolic function is normal. -There is no left atrial appendage filling defect. Two right pulmonary veins and two left pulmonary veins drain normally into the left atrium. -No pericardial thickening or calcification. -Central and branch pulmonary arteries in the [id number] are unremarkable. -Thoracic aorta within the visualized thoracic aortic-branches in the [id number] is unremarkable. Extracardiac Structures No significant extra-cardiac findings. Note, however, that this study is focused on the cardiac findings. IMPRESSION -No coronary calcification with an Agatston score = 0 using the AJ-130 method. -No evidence of significant flow-limiting atherosclerosis of the coronary arteries. -No evidence of coronary anomalies. -CAD-RADS 0. Management recommendations per ACC/AHA guidelines*, as clinically appropriate. *Recommendations: CAD RADS 0: Reassurance. Consider non-atherosclerotic causes of chest pain. CAD RADS 1: Consider non-atherosclerotic causes of chest pain. Consider preventive therapy and risk factor modification. CAD RADS 2: Consider non-atherosclerotic causes of chest pain. Consider preventive therapy and risk factor modification, particularly for patients with nonobstructive plaque in multiple segments. CAD RADS 3: Consider further functional testing. Consider symptom-guided anti-ischemic and preventive pharmacotherapy as well as risk factor modification per published guideline statements. CAD RADS 4A: Consider further functional testing or invasive coronary angiography with revascularization per published guideline statements. Consider symptom-guided anti-ischemic and preventive pharmacotherapy as well as risk factor modification per published guideline statements. CAD RADS 4B: Invasive coronary angiography recommended with revascularization per published guideline statements. Consider symptom-guided anti-ischemic and preventive pharmacotherapy as well as risk factor modification per published guideline statements. CAD RADS 5: Consider invasive angiography and/or viability assessment with revascularization per published guideline statements. Consider symptom-guided anti-ischemic and preventive pharmacotherapy as well as risk factor modification per published guideline statements. CRITICAL RESULT None COMMUNICATION Per this written report The coronary and cardiac findings of this CCTA were reviewed, reported, and signed by Sahil Amos MD (Fire Prevention Captain) Conclusion Electronically signed by : Laverne Amos MD 06/16/2023 20:02:26
[2023-06-14 11:47] VITALS: BMI 22.3
[2023-06-14 12:03] LABS: Urine Pregnancy, HCG Qual. Negative (Negative)
[2023-06-14 12:20] VITALS: BP 123/68; PULSE 62; RESP 16; O2SAT 98
[2023-06-14 12:22] VITALS: BP 99/61; PULSE 66; RESP 16; O2SAT 98
[2023-06-14 12:28] VITALS: BP 89/57; PULSE 56; RESP 16; O2SAT 98
--- NOTE | 2023-06-14 12:39 | CA_ITS ---
APPROVED REPORT EXAM: Comprehensive 2D, Doppler, and color-flow Echocardiogram Doughnut Machine Operator Helper: Glendy Hatfield RT(R) Ht: 5 ft 4 in Wt: 130lbs BSA: 1.63 BP: 108/69 mmHg Indications: SOA, CP, Dyspnea, Smoker, Palpitations 2D Dimensions LVEF (Guillen's) 63.20 % F: 54 - 74 LV Volume 66.60 mL F: 46 - 106 LV Volume Index 40.611911 mL/m2 F: 29 - 61 LA Volume 15.90 mL LA Volume Index 9.672157 mL/m2 (M/F) 16-34 EF AP4 55.90 % EF AP2 68.0 % EF BP 63.2 % GL Strain -20.4 % M-Mode Dimensions RVDd 2.72 cm (0.9-2.6) LA Diam 3.16 cm (1.9-4.0) LVDd 3.65 cm (3.5-5.7) LVDs 2.75 cm (3.5-5.7) IVSd 0.78 cm (0.6-1.1) PWd 0.78 cm (0.6-1.1) EF (Teich) 49.70% FS 24.70% EDV (Teich) 56.30 mL ESV (Teich) 28.30 mL LV Diastology E Decel Time 237 (160-240 msec) E/A Ratio 1.45 Mitral Valve MV E Max Wu. 97.0 (40-130 cm/s) MV A Velocity 66.0 (40-130 cm/s) E/A Ratio 1.45 MV PHT 69.0 ms Tricuspid Valve TR P. Velocity 182.00 cm/s RAP Estimate 10.00 mmHg RVSP 23.20 mmHg Left Ventricle The left ventricle is normal size. The left ventricular systolic function is normal. The left ventricular ejection fraction is within the normal range. There is normal left ventricular wall thickness. There is normal LV segmental wall motion. The left ventricular diastolic function is normal. LVEF is 60%. Right Ventricle Right ventricle is mildly dilated. The right ventricular systolic function is normal. Atria The left atrium size is normal. The right atrium size is normal. There is no Doppler evidence of interatrial shunt. Aortic Valve The aortic valve is normal in structure. There is no aortic valvular stenosis. No aortic regurgitation is present. Mitral Valve The mitral valve is normal in structure. No evidence of mitral valve stenosis. There is no mitral valve regurgitation noted. Tricuspid Valve The tricuspid valve leaflets are thin and pliable. Trace tricuspid regurgitation. There is insufficient TR jet to estimate RVSP. Pulmonic Valve The pulmonary valve is normal in structure. Trace pulmonic regurgitation. Great Vessels The aortic root is normal in size. The ascending aorta is normal in size. IVC is normal in size and collapses >50% with inspiration. Pericardium There is no pericardial effusion. Other Information Study Quality: Fair Conclusion Normal biventricular systolic function. Mild RV dilation. No significant valvular stenosis or regurgitation. Electronically signed by : Laverne Amos MD 06/16/2023 19:48:12
[2023-06-14 12:40] VITALS: BP 121/74; PULSE 69; RESP 16; TEMP 36.9; O2SAT 98
[2023-06-14] MEDS: 0.9 % SODIUM CHLORIDE 50 ML VIAL IV (12:44)
[2023-06-14] MEDS: IOPAMIDOL-370 (76%);100ML BOTTLE 85 ML IV (12:44)
== END 2023-06-14 12:40 | disposition home or self-care (01) ==
PROVIDERS: PCP Family Medicine; Visit Provider Physician Assistant
DX: R06.00 Dyspnea, unspecified (principal); R07.9 Chest pain, unspecified; R00.2 Palpitations; F17.200 Nicotine dependence, unspecified, uncomplicated
CPT/HCPCS: 75571; 75574; 81025; 93306; Q9967

== ENCOUNTER 2024-06-26 10:25 | Outpatient (CLI) | payer OTHER, SELFPAY ==
[2024-06-26 10:44] LABS: Basophils # 0.1 K/mm3 (0-0.2); Basophils % 0.5 % (0.1-2.0); Eosinophils # 0.2 K/mm3 (0.0-0.4); Eosinophils % 2.6 % (0.1-12.0); Hematocrit 38.7 % (37.0-47.0); Hemoglobin 13.2 g/dL (12.2-16.2); Lymphocytes # 2.1 K/mm3 (0.7-4.5); Lymphocytes % 23.1 % (10-50); Mean Corpuscular HGB Conc 34.1 g/dL (31.8-35.4); Mean Corpuscular Hemoglobin 30.6 pg (27.0-31.2); Mean Corpuscular Volume 89.6 fl (81-99); Mean Platelet Volume 9.5 fl (7.4-10.4); Monocytes # 0.6 K/mm3 (0.1-1.0); Monocytes % 6.8 % (1.7-9.3); Neutrophils # 6.1 K/mm3 (1.8-7.8); Neutrophils % 66.8 % (37.0-80.0); Platelet Count 299 K/mm3 (142-424); Red Blood Count 4.32 M/mm3 (4.20-5.40); Red Cell Distribution Width 12.2 % (11.5-17.5); White Blood Count 9.1 K/mm3 (4.8-10.8)
[2024-06-26 11:32] LABS: Albumin Level 4.2 g/dl (3.5-5.0)
[2024-06-26 11:33] LABS: Chloride 104 mmol/L (98-107); Potassium 4.1 mmoL/L (3.5-5.1); Sodium 138 mmol/L (136-145)
[2024-06-26 11:35] LABS: Alanine Aminotransferase 28 U/L (12-78); Anion Gap 10.1 mEq/L (5-15); Aspartate Amino Transferase 32 U/L (14-36); Bilirubin,Unconjugated 0.1 mg/dL (0.0-1.1); Blood Urea Nitrogen 12 mg/dl (7-17); Carbon Dioxide 28 mmol/L (22.0-30.0); Estimated Glomerular Filt Rate 56 ml/min (>60); GFR (African American) 68 ML/MIN (>60)
[2024-06-26 11:36] LABS: Alkaline Phosphatase 62 U/L (38-126); Bilirubin,Direct 0.2 mg/dl (0.0-0.4); Bilirubin,Indirect 0.1 mg/dL (0.0-0.9); Bilirubin,Total 0.3 mg/dl (0.2-1.3); Calcium 8.9 mg/dl (8.4-10.2); Chol/HDL Ratio 4.8 (1-3.5); Cholesterol 248 mg/dl (140-200); Glucose 87 mg/dl (74-100); HDL Cholesterol 52 mg/dl (40-60); Magnesium 1.8 mg/dl (1.6-2.3); Total Protein,Serum 6.6 g/dl (6.3-8.2); Triglycerides 335 mg/dl (30-150); VLDL Cholesterol 67 mg/dL (0-40)
[2024-06-26 12:10] LABS: Thyroid Stimulating Hormone 0.78 uIU/mL (0.465-4.68)
[2024-06-26 12:26] LABS: Free T4 (Free Thyroxine) 1.05 ng/dl (0.78-2.19)
[2024-06-26 14:56] LABS: Direct LDL Cholesterol 135.09 mg/dL (100-129)
== END 2024-06-26 23:59 | disposition home or self-care (01) ==
LOC: LAB 10:26
PROVIDERS: PCP Family Medicine; Visit Provider Nurse Practitioner
DX: R00.2 Palpitations (principal); F17.200 Nicotine dependence, unspecified, uncomplicated
CPT/HCPCS: 36415; 80048; 80061; 80076; 83735; 84439; 84443; 85025